=== PATIENT | female | born 2000 | race Caucasian/White ===

== ENCOUNTER 2021-04-09 04:10 | Emergency (ER) | payer SELFPAY ==
[~2021-04-09] VITALS: Ht 170.2 cm; Wt 59.1 kg
[2021-04-09 04:15] VITALS: BP 142/92; Ht 170.2 cm; Wt 59.1 kg
[2021-04-09] MEDS ORDERED: KEPPRA500 MG PO (04:18)
[2021-04-09 04:49] LABS: ANION GAP 16.9 mmol/L (8-16); BASOPHILS 1.3 % (0-2); CALCIUM 9.4 mg/dL (8.5-10.1); CARBON DIOXIDE 23.8 mmol/L (21.0-32.0); EOSINOPHILS 0.1 % (0-7); HEMATOCRIT 44.1 % (36.0-48.0); HEMOGLOBIN 14.5 g/dL (12-16); LYMPHOCYTES 18.5 % (15-50); MCH 27.3 pg (26.0-34.0); MCV 82.6 fL (80.0-100.0); MEAN PLATELET VOLUME 8.5 fL (7.4-10.4); MONOCYTES 3.8 % (2-11); NEUTROPHILS 76.3 % (40-80); PLATELET COUNT 417 10x3/uL (130-400); POTASSIUM - SERUM 3.7 mmol/L (3.5-5.1); RBC 5.33 10x6/uL (4.00-5.40); RDW 15.1 % (11.5-14.5); WBC 7.8 10x3/uL (4.8-10.8)
[2021-04-09 05:01] LABS: ALBUMIN 4.7 g/dL (3.4-5.0); BILIRUBIN - TOTAL 0.75 mg/dL (0.2-1.3); PROTEIN - SERUM 8.4 g/dL (6.4-8.2)
[2021-04-09 05:18] LABS: HCG SERUM NEGATIVE (NEGATIVE)
[2021-04-09] MEDS ORDERED: ZOFRAN ODT4 MG/UDTAB PO (05:58)
== END 2021-04-09 07:09 | disposition home or self-care (01) ==
LOC: D.ER 04:10
PROVIDERS: Family Medicine
DX: R11.2 Nausea with vomiting, unspecified (principal)